=== PATIENT | male | born 1960 | race African-American/Black ===

== ENCOUNTER 2023-02-25 07:11 | Emergency (ER) | payer OTHER ==
[~2023-02-25] VITALS: Ht 170.2 cm; Wt 77.0 kg
[~2023-02-25 07:11] MED LIST: FAMO20TA8 PO; INDO50CA98 PO
[2023-02-25 07:12] VITALS: O2SAT 99
[2023-02-25 08:21] LABS: BASOPHILS % 0.8 % (0.0-2.0); EOSINOPHILS % 0.3 % (0.0-5.0); HEMATOCRIT. 45.1 % (42.0-52.0); LYMPHOCYTES % 18.6 % (20.0-50.0); MEAN CORPUSCULAR HEMOGLOBIN 29.6 pg (28.0-32.0); MEAN CORPUSCULAR HGB CONC 33.3 g/dL (31.0-37.0); MEAN CORPUSCULAR VOLUME 88.8 fL (80.0-94.0); MEAN PLATELET VOLUME 8.1 fl (7.4-10.4); MONOCYTES % 10.4 % (2.0-8.0); NEUTROPHILS % 69.9 % (40.0-76.0); PLATELET 197 x1000/uL (130-400); RED BLOOD CELL COUNT 5.08 mill/uL (4.7-6.1); RED CELL DISTRIBUTION WIDTH 13.3 % (11.6-14.6); WHITE BLOOD COUNT 4.5 x1000/uL (4.5-11.0)
[2023-02-25 08:58] LABS: AMMONIA 13 uMol/L (<32)
[2023-02-25 11:40] LABS: CHLORIDE 106 mEq/L (98-107); INDEX HEMOLYSI 3 (1-3); INDEX ICTERIC 1 (1-4); INDEX LIPEMIC 1 (1-3); POTASSIUM 3.7 mEq/L (3.5-5.1); SODIUM 137 mEq/L (136-145)
[2023-02-25 11:49] LABS: ALANINE AMINOTRANSFERASE 20 IU/L (13-61); ALBUMIN 3.7 g/dL (3.4-5.0); ASPARTATE AMINOTRANSFERASE 20 IU/L (15-37); BILIRUBIN TOTAL 0.6 mg/dL (0.1-1.0); CALCIUM 8.4 mg/dL (8.5-10.1); CARBON DIOXIDE 23 mEq/L (21-32); CREATINE KINASE 123 IU/L (39-308); ETHANOL BLOOD < 10 mg/dL (<10); GLUCOSE 122 mg/dL (70-105); PROTEIN TOTAL 7.9 g/dL (6.0-8.3); TROPONIN I HIGH SENSITIVITY 6 ng/L (<78); UREA NITROGEN BLOOD 14 mg/dL (7-21)
[2023-02-25] MEDS ORDERED: SODIUM CHLORIDE 0.9% 1,000 ML IV ONE (12:30)
[2023-02-25] MEDS ORDERED: IOHEXOL-350 100 ML BOTTLE ONE (14:52)
[2023-02-25 20:15] VITALS: BP 126/97; PULSE 55; RESP 16; TEMP 98.3
== END 2023-02-25 20:41 | disposition admitted as inpatient to this hospital (09) ==
LOC: ER 07:11
DX: R41.82 Altered mental status, unspecified (principal)
CPT/HCPCS: 80053; 80320; 82140; 82550; 82962; 85025; 84484; 36415; 70496; 70498; 70450; 93005; 96360; 96361; 99285; Q9967; J7030; G0480